=== PATIENT | female | born 2005 ===

== ENCOUNTER 2023-11-27 11:35 | Emergency (ER) | payer SELFPAY ==
[~2023-11-27] VITALS: Ht 160 cm; Wt 69.0 kg
[2023-11-27 11:44] VITALS: O2SAT 97
[2023-11-27 12:11] LABS: HEMATOCRIT. 39.3 % (36.0-48.0); MEAN CORPUSCULAR HEMOGLOBIN 28.1 pg (28.0-32.0); MEAN CORPUSCULAR HGB CONC 33.1 g/dL (31.0-37.0); MEAN CORPUSCULAR VOLUME 84.8 fL (81.0-99.0); PLATELET 328 x1000/uL (130-400); RED BLOOD CELL COUNT 4.64 mill/uL (4.2-5.4); RED CELL DISTRIBUTION WIDTH 14.2 % (11.6-14.6); WHITE BLOOD COUNT 11.5 x1000/uL (4.5-11.0)
[2023-11-27 12:17] LABS: DIFFERENTIAL COMMENT 1
[2023-11-27 12:34] LABS: ALANINE AMINOTRANSFERASE 42 IU/L (10-49); ALBUMIN 4.8 g/dL (3.2-4.8); ASPARTATE AMINOTRANSFERASE 24 IU/L (<34); BILIRUBIN TOTAL 0.5 mg/dL (0.1-1.0); CALCIUM 8.5 mg/dL (8.7-10.4); CARBON DIOXIDE 25 mEq/L (21-32); CHLORIDE 105 mEq/L (98-107); CREATININE 0.7 mg/dL (0.6-1.0); GLUCOSE 97 mg/dL (70-105); POTASSIUM 3.6 mEq/L (3.5-5.1); PROTEIN TOTAL 7.9 g/dL (6.0-8.3); SODIUM 136 mEq/L (136-145); T4 FREE 1.04 ng/dL (0.89-1.76); THYROID STIMULATING HORMONE 0.36 uIU/mL (0.55-4.78); UREA NITROGEN BLOOD 12 mg/dL (9-23)
[2023-11-27 12:36] LABS: HCG SCREEN NEGATIVE
[2023-11-27 13:06] LABS: PLATELET ESTIMATE NORMAL
[2023-11-27 13:21] LABS: TROPONIN I HIGH SENSITIVITY < 4 ng/L (3.0-34)
[2023-11-27 16:16] LABS: CLARITY URINE CLEAR (CLEAR); COLOR URINE YELLOW (YELLOW); GLUCOSE URINE NEGATIVE (NEGATIVE); KETONES URINE NEGATIVE (NEGATIVE); LEUKOCYTE ESTERASE URINE NEGATIVE (NEGATIVE); NITRITE URINE NEGATIVE (NEGATIVE); OCCULT BLOOD URINE NEGATIVE (NEGATIVE); PROTEIN URINE 1+ (NEGATIVE); SPECIFIC GRAVITY URINE 1.029 (1.005-1.030); UROBILINOGEN URINE 0.2 E.U./dL (0.2-1.0)
[2023-11-27 16:29] LABS: *AMPHETAMINES SCREEN URINE NEGATIVE (NEGATIVE); *BARBITURATES SCREEN URINE NEGATIVE (NEGATIVE); *BENZODIAZEPINES SCREEN URINE NEGATIVE (NEGATIVE); *COCAINE SCREEN URINE NEGATIVE (NEGATIVE); CANNABINOID URINE SCREEN NEGATIVE (NEGATIVE); ECSTASY MDMA SCREEN URINE NEGATIVE (NEGATIVE); METHADONE URINE SCREEN Neg (NEGATIVE); OPIATES URINE SCREEN NEGATIVE (NEGATIVE); PHENCYCLIDINE URINE SCREEN NEGATIVE (NEGATIVE)
[2023-11-27 16:55] LABS: BACTERIA URINE NONE SEEN; SQUAMOUS EPITHELIAL CELL URINE 1+ /lpf (RARE/1+)
[2023-11-27] MEDS: ACETAMINOPHEN 325MG TABLET PO ONE (18:47)
[2023-11-27 20:43] VITALS: BP 120/70; PULSE 93; RESP 18; TEMP 102.7
[2023-11-27] MEDS ORDERED: IOHEXOL-350 100 ML BOTTLE ONE (23:25)
== END 2023-11-27 20:52 | disposition home or self-care (01) ==
LOC: ER 11:35
DX: R07.89 Other chest pain (principal)
CPT/HCPCS: 99285; 71275; 71045; 80053; 80305; 81003; 81025; 84703; 84439; 84443; 85025; 85379; 84484; 36415; 93005; Q9967